=== PATIENT | female | born 1990 | race Native Hawaiian/Other Pacific Islander ===

== ENCOUNTER 2023-09-26 08:06 | Outpatient (CLI) | payer OTHER, SELFPAY ==
[2023-09-26 19:35] LABS: Alanine Aminotransferase 31 U/L (6-35); Albumin Level 4.7 g/dL (3.5-5.1); Alkaline Phosphatase 61 U/L (38-126); Anion Gap 12 mmol/L (4-12); Aspartate Amino Transferase 50 U/L (14-36); Bilirubin,Total 0.5 mg/dL (0.2-1.3); Blood Urea Nitrogen 7 mg/dL (7-17); Calcium 9.4 mg/dL (8.4-10.2); Carbon Dioxide 23 mmol/L (22-30); Chloride 101 mmol/L (98-107); Cholesterol 177 mg/dL (0-200); Estimated Glomerular Filt Rate > 60; Glucose 101 mg/dL (65-110); HDL Direct 75 mg/dL; Potassium 4.6 mmol/L (3.4-5.0); Sodium 136 mmol/L (137-145); Triglycerides 124 mg/dL (<150)
[2023-09-26 19:44] LABS: Vitamin D 25 Hydroxy 30.3 ng/mL
[2023-09-26 19:46] LABS: LDL Cholesterol Direct 75 mg/dL
[2023-09-26 19:48] LABS: Hematocrit 39.5 % (37.0-47.0); Hemoglobin 12.6 g/dL (12.0-15.0); Mean Corpuscular HGB Conc 31.9 g/dl (32-36); Mean Corpuscular Hemoglobin 27.8 pg (26-34); Mean Platelet Volume 10.2 fl (7.4-10.4); Platelet Count Result 400 k/mm3 (150-375); Red Blood Count 4.54 M/mm3 (4.2-5.4); Red Cell Distribution Width 12.8 % (11.5-14.5); White Blood Count 10.7 K/mm3 (4.5-10.0)
== END 2023-09-26 08:07 | disposition home or self-care (01) ==
LOC: ANHGOSHLAB 08:07
PROVIDERS: PCP Nurse Practitioner; Visit Provider Nurse Practitioner
DX: Z00.00 Encounter for general adult medical examination without abnormal findings (principal); E55.9 Vitamin D deficiency, unspecified
CPT/HCPCS: 36415; 80053; 80061; 82306; 84443; 85027

== ENCOUNTER 2023-11-05 08:44 | Outpatient (CLI) | payer OTHER, SELFPAY ==
--- NOTE | 2023-11-05 09:03 | EST_ITS ---
Patient Info Name: Veronica Gandara Age: 33 years : 1990 Gender: Female Ht: 63 in Wt: 218 lbs BSA: 2.15 m2 HR: 70 bpm BP: 141 / 87 mmHg Heart Rhythm: Sinus Rhythm Exam Date: 11/05/2023 9:14 AM Exam Location: [facility] Patient Status: Outpatient Admit Date: 11/05/2023 Staff Ordering Physician: Veronica Mix Attending Provider: Veronica Mix Exercise Technologist: Virginia Naranjo CT Exercise Physician: Chandana Craig DO Exam Type: CA stress test treadmill Study Info Indications - POTS A treadmill exercise stress test was performed. Summary 1. 1. Negative Jaskaran exercise stress test for ischemic ST changes by ECG criteria. 2. 2. Reduced functional capacity, achieving 7 METs of workload. 3. 3. Baseline hypertension. 4. 4. Appropriate HR response to exercise. 5. 5. Appropriate HR recovery at 1 minute post exercise. 6. 6. No imaging with stress testingg. 7. 7. Patient informed of the above results. Protocol: Jaskaran Stress ECG Details Stage: REST Duration (min): 1 min : 5 sec Speed (mph): 0.0 Grade (%): 0 HR (bpm): 70 SBP (mmHg): 141 DBP (mmHg): 87 METS: --- Stage: REST Duration (min): 10 min : 55 sec Speed (mph): 0.0 Grade (%): 0 HR (bpm): 100 SBP (mmHg): 141 DBP (mmHg): 87 METS: --- Stage: STAGE 1 Duration (min): 1 min : 0 sec Speed (mph): 1.7 Grade (%): 10 HR (bpm): 114 SBP (mmHg): 141 DBP (mmHg): 87 METS: --- Stage: STAGE 1 Duration (min): 2 min : 0 sec Speed (mph): 1.7 Grade (%): 10 HR (bpm): 115 SBP (mmHg): 141 DBP (mmHg): 87 METS: --- Stage: STAGE 1 Duration (min): 3 min : 0 sec Speed (mph): 1.7 Grade (%): 10 HR (bpm): 123 SBP (mmHg): 170 DBP (mmHg): 85 METS: --- Stage: STAGE 2 Duration (min): 1 min : 0 sec Speed (mph): 2.5 Grade (%): 12 HR (bpm): 140 SBP (mmHg): 170 DBP (mmHg): 85 METS: --- Stage: STAGE 2 Duration (min): 2 min : 0 sec Speed (mph): 2.5 Grade (%): 12 HR (bpm): 162 SBP (mmHg): 206 DBP (mmHg): 72 METS: --- Stage: STAGE 2 Duration (min): 3 min : 0 sec Speed (mph): 2.5 Grade (%): 12 HR (bpm): 169 SBP (mmHg): 197 DBP (mmHg): 76 METS: --- Stage: RECOVERY Duration (min): 0 min : 59 sec Speed (mph): 0.0 Grade (%): 0 HR (bpm): 153 SBP (mmHg): 258 DBP (mmHg): 34 METS: --- Stage: RECOVERY Duration (min): 1 min : 59 sec Speed (mph): 0.0 Grade (%): 0 HR (bpm): 118 SBP (mmHg): 258 DBP (mmHg): 34 METS: --- Stage: RECOVERY Duration (min): 2 min : 59 sec Speed (mph): 0.0 Grade (%): 0 HR (bpm): 109 SBP (mmHg): 182 DBP (mmHg): 43 METS: --- Stage: RECOVERY Duration (min): 3 min : 0 sec Speed (mph): 0.0 Grade (%): 0 HR (bpm): --- SBP (mmHg): 182 DBP (mmHg): 43 METS: --- Rest HR: 100 bpm Peak HR: 169 bpm Rest Sys BP: 141 mmHg Peak Sys BP: 195 mmHg Max Pred HR: 188 bpm % Max Pred HR: 90 % Target HR: 160 bpm
== END 2023-11-05 08:45 | disposition home or self-care (01) ==
PROVIDERS: PCP Nurse Practitioner; Visit Provider Nurse Practitioner
DX: G90.A Postural orthostatic tachycardia syndrome [POTS] (principal); I49.8 Other specified cardiac arrhythmias; I10 Essential (primary) hypertension
CPT/HCPCS: 93017

== ENCOUNTER 2023-11-19 07:58 | Outpatient (CLI) | payer OTHER, SELFPAY ==
[2023-11-19 14:27] LABS: Complement C3 153 mg/dL (88-165)
[2023-11-20 12:09] LABS: Angiotensin Converting Enzyme 20 U/L (9-67)
[2023-11-20 14:39] LABS: Complement Total CH50 >60 U/mL (31-60)
== END 2023-11-19 07:59 | disposition home or self-care (01) ==
LOC: ANHGOSHLAB 07:59
PROVIDERS: PCP Nurse Practitioner; Visit Provider Internal Medicine
DX: M19.90 Unspecified osteoarthritis, unspecified site (principal)
CPT/HCPCS: 36415; 82164; 86160; 86162

== ENCOUNTER 2023-11-19 08:52 | Outpatient (CLI) | payer OTHER, SELFPAY ==
--- NOTE | ~2023-11-19 | XR_ITS ---
XR hand RT 2V Ordering provider: Jeremias Hager MD History: . inflammatory arthritis GENERAL JOINT PAIN . Comparison: None. FINDINGS: BONES: No acute fracture or dislocation. JOINT SPACES: Normal. SOFT TISSUES: Normal. IMPRESSION: No acute osseous abnormality right hand. Reviewed, dictated and finalized at location A.
--- NOTE | ~2023-11-19 | XR_ITS ---
XR foot LT 2V Ordering provider: Jeremias Hager MD History: . inflammatory arthritis GENERAL JOINT PAIN . Comparison: None. FINDINGS: BONES: No acute fracture or dislocation. JOINT SPACES: Normal. No tarsal coalition. SOFT TISSUES: Normal. IMPRESSION: No acute osseous abnormality left foot. Reviewed, dictated and finalized at location A.
--- NOTE | ~2023-11-19 | XR_ITS ---
XR foot RT 2V Ordering provider: Jeremias Hager MD History: . inflammatory arthritis GENERAL JOINT PAIN . Comparison: None. FINDINGS: BONES: No acute fracture or dislocation. JOINT SPACES: Normal. No tarsal coalition. SOFT TISSUES: Normal. IMPRESSION: No acute osseous abnormality of the right foot. Reviewed, dictated and finalized at location A.
--- NOTE | ~2023-11-19 | XR_ITS ---
EXAMINATION: XR sacroiliac joints min 3V DATE: 11/19/2023 09:22 INDICATION: Inflammatory arthritis. Generalized joint pain. TECHNIQUE: 3 views of the sacroiliac joints were obtained. COMPARISON: None. FINDINGS: Alignment is normal. No fracture. There is mild osteoarthritis of the sacroiliac joints christian racterized by tiny osteophytes. IMPRESSION: 1. Mild osteoarthritis of the sacroiliac joints. No evidence of inflammatory arthropathy. Reviewed, dictated and finalized at location A. IMPRESSION: 1. Mild osteoarthritis of the sacroiliac joints. No evidence of inflammatory ar thropathy.
--- NOTE | ~2023-11-19 | XR_ITS ---
XR hand LT 2V Ordering provider: Jeremias Hager MD History: . inflammatory arthritis GENERAL JOINT PAIN . Comparison: None. FINDINGS: BONES: No acute fracture or dislocation. JOINT SPACES: Well maintained. SOFT TISSUES: Unremarkable. IMPRESSION: No acute osseous abnormality left hand. Reviewed, dictated and finalized at location A.
--- NOTE | ~2023-11-19 | XR_ITS ---
3 VIEWS LUMBAR SPINE Ordering provider: Jeremias Hager MD History: . inflammatory arthritis, LBP RADIATING BILATERALLY TO LEGS . Comparison: None. FINDINGS: VERTEBRAL BODIES: No visible fracture or subluxation. DISK SPACES: Normal. SOFT TISSUES: Normal. IMPRESSION: No acute osseous abnormality lumbar spine. Reviewed, dictated and finalized at location A.
== END 2023-11-19 08:53 | disposition home or self-care (01) ==
LOC: ANHIMG 08:54
PROVIDERS: PCP Nurse Practitioner; Visit Provider Internal Medicine
DX: M19.90 Unspecified osteoarthritis, unspecified site (principal); M53.3 Sacrococcygeal disorders, not elsewhere classified
CPT/HCPCS: 36415; 72100; 72202; 73120; 73620; 82164; 86160; 86162

== ENCOUNTER 2024-01-23 07:26 | Outpatient (CLI) | payer OTHER, SELFPAY ==
--- NOTE | ~2024-01-23 | MR_ITS ---
EXAMINATION: MR pelvis wo con DATE: 01/23/2024 09:26 INDICATION: Rheumatoid arthritis. Low back pain. TECHNIQUE: Magnetic resonance imaging (MRI) of the pelvis was performed without intravenous contrast. COMPARISON: Sacroiliac joint radiographs 11/19/23 FINDINGS: There is 8 degrees levocurvature of lumbar spine. No fracture. There is moderate osteoarthritis of th e sacroiliac joints and mild osteoarthritis of the hip joints. No hip joint effusion. There is mild l umbar spondylosis. The hamstring origins are normal. The iliopsoas tendons are normal. The gluteus mi nimus and gluteus medius tendons are normal. There is mild bilateral trochanteric bursitis. IMPRESSION: 1. Polyarticular osteoarthritis. No evidence of inflammatory arthropathy. Reviewed, dictated and finalized at location A. E HAND
--- NOTE | ~2024-01-23 | MR_ITS ---
MRI of the lumbar spine Clinical History: Back pain, rheumatoid arthritis Technique: Axial T2-weighted images, and sagittal T1-weighted, T2-weighted, and T2 fat-sat images wer e acquired. Findings: There is no fracture or subluxation of the lumbar spine. Vertebral bodies maintain normal h eight and alignment. No bone marrow signal abnormality seen. At L1-L2, L2-L3, L3-L4, the intervertebral discs maintain normal signal position. No disc bulge or he rniation is also. No spinal canal stenosis or neural foraminal narrowing at these levels. At L4-L5, there is mild disc desiccation. There is minimal disc bulge with small annular fissure. The re is moderate facet arthropathy. No central canal stenosis or neural foraminal narrowing. At L5-S1, there is no disc bulge or herniation. There is mild facet arthropathy. No central canal mal nosis or neural foraminal narrowing. Paravertebral soft tissues are unremarkable. Impression: Mild degenerative spondylosis overall, as above. Reviewed, dictated and finalized at location . X DEVELOPER Impression: Mild degenerative spondylosis overall, as above.
== END 2024-01-23 07:27 | disposition home or self-care (01) ==
LOC: MICIMG 07:27
PROVIDERS: PCP Internal Medicine; Visit Provider Internal Medicine
DX: M06.9 Rheumatoid arthritis, unspecified (principal); M53.3 Sacrococcygeal disorders, not elsewhere classified; M47.896 Other spondylosis, lumbar region
CPT/HCPCS: 72148; 72195

== ENCOUNTER 2024-02-11 08:23 | Outpatient (CLI) | payer OTHER, SELFPAY ==
[2024-02-11 16:12] LABS: Alanine Aminotransferase 27 U/L (6-35); Albumin Level 4.6 g/dL (3.5-5.1); Alkaline Phosphatase 61 U/L (38-126); Anion Gap 5 mmol/L (4-12); Aspartate Amino Transferase 138 U/L (14-36); Bilirubin,Total 0.5 mg/dL (0.2-1.3); Blood Urea Nitrogen 10 mg/dL (7-17); Calcium 9.4 mg/dL (8.4-10.2); Carbon Dioxide 28 mmol/L (22-30); Chloride 103 mmol/L (98-107); Cholesterol 177 mg/dL (0-200); Estimated Glomerular Filt Rate > 60; Glucose 77 mg/dL (65-110); HDL Direct 85 mg/dL; Potassium 4.4 mmol/L (3.4-5.0); Sodium 136 mmol/L (137-145); Triglycerides 116 mg/dL (<150)
[2024-02-11 16:23] LABS: LDL Cholesterol Direct 58 mg/dL
[2024-02-11 16:28] LABS: Vitamin D 25 Hydroxy 19.5 ng/mL
== END 2024-02-11 08:24 | disposition home or self-care (01) ==
PROVIDERS: PCP Internal Medicine; Visit Provider Nurse Practitioner
DX: R74.8 Abnormal levels of other serum enzymes (principal); E55.9 Vitamin D deficiency, unspecified; Z00.00 Encounter for general adult medical examination without abnormal findings
CPT/HCPCS: 36415; 80053; 80061; 82306; 84443

== ENCOUNTER 2024-03-05 10:00 | Outpatient (CLI) | payer OTHER, SELFPAY ==
--- NOTE | ~2024-03-05 | US_ITS ---
EXAMINATION: US abdomen complete DATE: 03/05/2024 10:19 INDICATION: Abnormal levels of other serum enzymes. Left upper quadrant abdominal pain. TECHNIQUE: Multiple grayscale and Doppler ultrasound images of the abdomen were obtained. COMPARISON: None FINDINGS: The pancreatic head and body are normal in appearance. The pancreatic tail is not visualized. Liver has normal contour, with a smooth surface. There is increased parenchymal echogenicity and coarsened echotexture consistent with diffuse hepatic steatosis. No liver lesion identified. No intrahepatic b iliary duct dilation suspected. Portal venous flow was seen in the hepatopetal, normal direction and has normal Doppler waveform. The gallbladder is normal in appearance. There is no cholelithiasis. Th e common bile duct measures 3 mm, which is normal. Sonographic Fulton sign was reported as negative b y the church warden. There is normal renal contour and echogenicity bilaterally. The right kidney measu res 11.3 x 4.6 x 4.7 cm and the left 11.0 x 4.3 x 6.3 cm. There are no focal renal lesions identifie d. There is no hydronephrosis. Normal abdominal aorta and inferior vena cava. The aorta measures 1.8 cm in AP diameter proximally, 2.0 cm in the mid aorta and 1.7 cm distally. Normal spleen measuring 1 0.0 cm in length. IMPRESSION: 1. Diffuse hepatic steatosis. Reviewed, dictated and finalized at location B. ORT PLANNING MANAGER
== END 2024-03-05 10:01 | disposition home or self-care (01) ==
PROVIDERS: PCP Family Medicine; Visit Provider Nurse Practitioner
DX: R74.8 Abnormal levels of other serum enzymes (principal); K76.0 Fatty (change of) liver, not elsewhere classified
CPT/HCPCS: 76700

== ENCOUNTER 2024-07-21 10:05 | Outpatient (CLI) | payer OTHER, SELFPAY ==
--- OUTSIDE RECORDS SUMMARY | 2024-07-21 10:19 | XMS_ITS | Encounter Summary ---
Author Organization [facility] Address [address] [place] [address] Care Team Providers Care Register Repairer Name Role Phone Unavailable Primary Care Provider Unavailabl e Prior Encounters Date Type Department Care Team Description 03/23/2019 Converted CPS Chart Documents [facility] [address] [place] [id number] <No scans attached> 03/23/2019 Converted 13x Documents [facility] [address], [place] [id number] <No scans attached> Plan of Treatment Not on file Procedures Procedure Name Priority Date/Time Associated Diagnosis Comments CANCELLED APPOINTMENT Routine 04/16/2018 2:00 AM PERSONNEL TRAINING OFFICER CANCELLED APPOINTMENT Routine 04/16/2018 2:00 AM PERSONNEL TRAINING OFFICER 15 O AMALGAM 1 SURFACE Routine 9 2:00 AM PERSONNEL TRAINING OFFICER 2 O AMAL[place] 1 SURFACE Routine 03/25/2018 2:00 AM PERSONNEL TRAINING OFFICER COMPREHENSIVE ORAL EVALUATION - NEW OR ESTABLISHED PATIENT Routine 03/25/2018 2:00 AM PERSONNEL TRAINING OFFICER PANORAMIC RADIOGRAPHIC IMAGE Routine 03/25/2018 2:00 AM PERSONNEL TRAINING OFFICER INTRAORAL - COMPREHENSIVE SERIES OF RADIOGRAPHIC IMAGES Routine 03/25/2018 2:00 AM PERSONNEL TRAINING OFFICER INTRAORAL PHOTO Routine 03/25/2018 2:00 AM PERSONNEL TRAINING OFFICER INTRAORAL PHOTO Routine 03/25/2018 2:00 AM PERSONNEL TRAINING OFFICER INTRAORAL PHOTO Routine 03/25/2018 2:00 AM PERSONNEL TRAINING OFFICER INTRAORAL PHOTO Routine 03/25/2018 2:00 AM PERSONNEL TRAINING OFFICER 13 MOD COMPOSITE FILLING Routine 019 2:00 AM PERSONNEL TRAINING OFFICER 3 MOD COMPOSITE FILLING Routine 03/25/19 19 2:00 AM PERSONNEL TRAINING OFFICER 20 DO COMPOSITE FILLING Routine 03/25/19 19 2:00 AM PERSONNEL TRAINING OFFICER 14 MO COMPOSITE FILLING Routine 03/25/19 19 2:00 AM PERSONNEL TRAINING OFFICER 31 O COMPOSITE FILLING Routine 9 2:00 AM PERSONNEL TRAINING OFFICER 31 B COMPOSITE FILLING Routine 9 2:00 AM PERSONNEL TRAINING OFFICER 30 O COMPOSITE FILLING Routine 9 2:00 AM PERSONNEL TRAINING OFFICER 30 B COMPOSITE FILLING Routine 9 2:00 AM PERSONNEL TRAINING OFFICER 19 O COMPOSITE FILLING Routine 9 2:00 AM PERSONNEL TRAINING OFFICER 19 B COMPOSITE FILLING Routine 9 2:00 AM PERSONNEL TRAINING OFFICER 18 O COMPOSITE FILLING Routine 9 2:00 AM PERSONNEL TRAINING OFFICER 18 B COMPOSITE FILLING Routine 9 2:00 AM PERSONNEL TRAINING OFFICER 4 O COMPOSITE FILLING Routine 03/25/2018 2:00 AM PERSONNEL TRAINING OFFICER Visit Diagnoses Not on file
--- OUTSIDE RECORDS SUMMARY | 2024-07-21 10:19 | XMS_ITS | Clinical Summary ---
Author Organization [facility] Address [address] [place] [address] Care Team Providers Care Manager Field Services Name Role Phone Unavailable Primary Care Provider Unavailabl e Social History Tobacco Use Types Packs/Day Years Used Date Smoking Tobacco: Never Assessed Comments Unknown Sex and Gender Information Value Date Recorded Sex Assigned at Not on file Legal Sex Female 1:30 AM PST Gender Identity Not on file Sexual Orientation Not on file Plan of Treatment Not on file
[2024-07-21 12:10] LABS: Kit Draw Collected
== END 2024-07-21 10:06 | disposition home or self-care (01) ==
LOC: ANHGOSHLAB 10:06
PROVIDERS: PCP Family Medicine; Visit Provider Nurse Practitioner
DX: R74.8 Abnormal levels of other serum enzymes (principal)
CPT/HCPCS: 36415